=== PATIENT | male | born 1980 | race Caucasian/White ===

== ENCOUNTER 2016-07-11 06:31 | Day surgery (SDC) | payer SELFPAY ==
--- NOTE | ~2016-07-11 | OP ---
Record Of Operation [facility] [address] [place]. [address] NAME: GELY ELAINE : 84 STATUS : [place] [facility] [place] PAT#: [id number] AGE: 35 ADM/REG DATE : 07/11/16 MR#: [id number] REPORT SERV DATE: 07/11/16 DICTATED BY: MAGDY CHRISTIANSON III DATE: 07/11/16 REPORT STATUS : Draft TRANSCRIBED BY: MODL DATE: 07/11/16 DATE OF PROCEDURE: 07/11/2016 PROCEDURE: Cystoscopy, left retrograde left ureteroscopy and removal of multiple small stones from the kidney. PREOPERATIVE DIAGNOSIS: Status post ureteral stone removal with persistent left flank pain. Passing gravel. POSTOPERATIVE DIAGNOSIS: Status post ureteral stone removal with persistent left flank pain. Passing gravel. ANESTHESIA: General. SURGEON: Magdy Christianson M.D. DESCRIPTION OF PROCEDURE: Following induction of adequate general anesthesia, the patient was placed in dorsal lithotomy position, prepped and draped in a sterile fashion. The urethra was examined and noted to be normal. Prostate was not occluding. The bladder was entered. There were no tumors or stones. I attempted a retrograde; however, the orifice was widely dilated and had to inject forcefully. The distal ureter was unobstructed. I could not force much more fluid above the pelvic brim due to the leakage in the bladder. I placed a wire in the left renal pelvis in some dye and then used a rigid ureteroscope to examine the distal ureter. There were no stones. There were no narrowed areas. I then injected some additional dye in the renal pelvis. Calices were opacified. They were not significantly dilated. Ureteroscopy was done to approximately L3. At this point, I could not progress, so a wire was placed and access sheath was placed under x-ray guidance to this level. Flexible ureteroscopy showed no stones in the ureter. The calices were checked calyx by calyx. Several small stones were removed. There were a number of Johan's plaques and these were basically chipped off the papilla with a laser to prevent new stone formation. The calices were checked twice using fluoroscopy. Following this, the system was opacified and all appeared normal. There was no extravasation. The ureter was examined on the way out with ureteroscope. There were no stones remaining. No abnormalities. A double-J stent of 5 x 26 size was placed; loop in the upper pole, loop in the bladder with a suture left for later removal. The patient tolerated the procedure well. OB/MODL Magdy Christianson III, M.D. / [id number] CC: Record Of Operation [address] [place] [address] NAME: GELY ELAINE : 84 STATUS : [place] [facility] [place] PAT#: [id number] AGE: 35 ADM/REG DATE : 07/11/16 MR#: [id number] REPORT SERV DATE: 07/11/16 DICTATED BY: MAGDY CHRISTIANSON III DATE: 07/11/16 REPORT STATUS : Draft TRANSCRIBED BY: MODL DATE: 07/11/16 Magdy Christianson III, M.D.
[~2016-07-11 06:31] MED LIST: *DENIES; ACET500CAP PO; ADVIL PO; ASACOL PO; ENDOCET1 TA1 PO; FLAG500TAB PO; FLORASTOR250 MG PO; INFLIXIMAB; LEVAQUIN5T PO; LEVAQUIN750 MG PO; LEVSINTAB PO; LORTAB 5 PO; NORCO1 TAB PO; P10 PO; PERCOCET1 TA2 PO; PR25 PO; PRILOSEC OTC20 MG PO
== END 2016-07-11 12:51 | disposition home or self-care (01) ==
LOC: SDC 06:31
PROVIDERS: Urology
PROC: 0T778DZ Dilation of Left Ureter with Intraluminal Device, Via Natural or Artificial Opening Endoscopic (ICD-10-PCS; 2016-07-11)
PROC: 0TC78ZZ Extirpation of Matter from Left Ureter, Via Natural or Artificial Opening Endoscopic (ICD-10-PCS; principal; 2016-07-11 07:45)
DX: N20.0 Calculus of kidney (principal); K50.90 Crohn's disease, unspecified, without complications; I10 Essential (primary) hypertension; Z87.442 Personal history of urinary calculi; Z88.5 Allergy status to narcotic agent; Z88.8 Allergy status to other drugs, medicaments and biological substances; Z87.891 Personal history of nicotine dependence; Z90.49 Acquired absence of other specified parts of digestive tract; Z98.890 Other specified postprocedural states
CPT/HCPCS: 74420; A9270-GY; C1758; C1769; C1894; C2617; J2250; J2405; J2710; J3010; Q9967